=== PATIENT | male | born 1985 | race American Indian/Alaskan Native ===

== ENCOUNTER 2018-11-25 15:08 | Emergency (ER) | payer SELFPAY ==
[2018-11-25] MEDS ORDERED: ASPIRIN PO ONE (15:47)
--- NOTE | 2018-11-25 15:49 | Emergency Department Report ---
Chief Complaint: Chest Pain Stated Complaint: CHEST PAIN Time Seen by Provider: 11/25/18 15:46 - HPI History of Present Illness: This is a 33 y.o. M. that presents to the ER with substernal chest pain since last night while at work. Patient reports pain increased this morning. No PMH - Exam Vital Signs: Vital Signs 11/25/18 15:45 Temperature 98.0 F Pulse Rate 56 L Respiratory 18 Rate Blood Pressure 130/72 O2 Sat by Pulse 98 Oximetry MSE screening note: Focused history and physical exam performed. Due to findings the following was ordered: This initial assessment/diagnostic orders/clinical plan/treatment(s) is/are subject to change based on patient's health status, clinical progression and re- assessment by fellow clinical providers in the ED. Further treatment and workup at subsequent clinical providers discretion. Patient/guardians urged not to elope from the ED as their condition may be serious if not clinically assessed and managed. Initial orders include: labs, ekg, and chest xr. ED Disposition for MSE Condition: Stable
--- NOTE | 2018-11-25 17:10 | XRay Report ---
PROCEDURE: XR CHEST 1V AP TECHNIQUE: Chest radiograph single view. HISTORY: Chest Pain COMPARISONS: None . FINDINGS: Heart: Normal. Mediastinum/Vessels: Normal. Lungs/Pleural space: No infiltrate, effusion, or pneumothorax. Bony thorax: No acute osseous abnormality. Life support devices: None. IMPRESSION: No radiographic evidence of acute cardiopulmonary abnormality. This document is electronically signed by Debi Stephens MD., November 25 2018 05:08:16 PM ET
[2018-11-25 20:03] LABS: Basophils # (Auto) 0.1 K/mm3 (0.0-0.1); Basophils % (Auto) 1.1 % (0.0-1.8); Eosinophils # (Auto) 0.4 K/mm3 (0.0-0.4); Eosinophils % (Auto) 5.3 % (0.0-4.3); Hematocrit 44.2 % (35.5-45.6); Hemoglobin 15.1 gm/dl (11.8-15.2); Lymphocytes # (Auto) 3.5 K/mm3 (1.2-5.4); Mean Corpuscular HGB Conc 34 % (32-34); Mean Corpuscular Volume 91 fl (84-94); Monocytes # (Auto) 0.4 K/mm3 (0.0-0.8); Monocytes % (Auto) 5.7 % (0.0-7.3); Platelet Count 265 K/mm3 (140-440); Red Blood Count 4.84 M/mm3 (3.65-5.03); Red Cell Distribution Width 13.3 % (13.2-15.2)
[2018-11-25 20:14] VITALS: BP 115/76
[2018-11-25 20:26] LABS: BUN/Creatinine Ratio 14; Blood Urea Nitrogen 13 mg/dL (9-20); Calcium 9.6 mg/dL (8.4-10.2); Hemolysis Index 20
[2018-11-25 20:29] LABS: Alanine Aminotransferase 31 units/L (7-56); Albumin 4.9 g/dL (3.9-5)
[2018-11-25 20:41] LABS: Bilirubin,Direct < 0.2 mg/dL (0-0.2)
--- NOTE | 2018-11-25 20:48 | Emergency Department Report ---
ED Chest Pain HPI - General Chief Complaint: Chest Pain Stated Complaint: CHEST PAIN Time Seen by Provider: 11/25/18 15:46 Source: patient Mode of arrival: Ambulatory Limitations: No Limitations - History of Present Illness Initial Comments: Patient is a 33-year-old -[place] male with a history of tobacco smoking and presents to the ED with complaint of acute onset persistent severe chest pain after heavy lifting at work 24 hours ago. Patient states that the pain has been constant and is worse with any movement, palpation or inhalation. Patient denies fall, traumatic injury, diaphoresis, nausea, vomiting, numbness and tingling of upper extremities, neck pain, dizziness, headache, palpitations, fever, chills, cough or sore throat and abdominal pain and back pain. MD Complaint: chest pain, other (heavy lifting 24 hours, now has chest pain) -: Sudden, hour(s) (24) Onset: during exertion, other (after heavy lifting at work) Pain Location: substernal (diffusely) Pain Radiation: none Severity: severe Severity scale (0 -10): 8 Quality: tightness, aching, sharp Consistency: constant Improves With: nothing Worsens With: exertion, inspiration, palpation, movement Context: other (heavy lifting at work 24 hours ago) re: denies: nausea, vomting, diaphoresis, dyspnea, sense of impending doom Other Symptoms: denies: cough, fever, rash, acid taste in mouth, leg swelling, palpitations, burping, other Treatments Prior to Arrival: none Aspirin use within the Past 7 Days: (0) No - Related Data Previous Rx's Medication Instructions Recorded Last Taken Type Cyclobenzaprine [Flexeril] 10 mg PO Q8H PRN #15 tablet 11/25/18 Unknown Rx Naproxen [Naprosyn] 500 mg PO Q12H PRN #20 tablet 11/25/18 Unknown Rx Allergies Allergy/AdvReac Type Severity Reaction Status Date / Time No Known Allergies Allergy Unverified 11/25/18 15:15 Heart Score - HEART Score History: Slightly suspicious EKG: Non-specific Age: < 45 Risk factors: 1-2 risk factors Troponin: < normal limit HEART Score: 2 - Critical Actions Critical Actions: 0-3 pts:0.9-1.7%risk of adverse cardiac event.Candidate for discharge ED Review of Systems ROS: Stated complaint: CHEST PAIN Other details as noted in HPI Comment: All other systems reviewed and negative Constitutional: no symptoms reported, see HPI. denies: diaphoresis, fever, malaise, weakness Eyes: as per HPI. denies: eye pain, eye discharge, vision change ENT: as per HPI. denies: ear pain, throat pain, dental pain, hearing loss, epistaxis Respiratory: no symptoms reported, see HPI. denies: cough, orthopnea, shortness of breath, SOB with exertion Cardiovascular: as per HPI, chest pain (anterior substernal diffusely). denies: palpitations, dyspnea on exertion, orthopnea, edema, syncope, paroxysmal n octurnal dyspnea, other Endocrine: no symptoms reported, see HPI. denies: excessive sweating, flushing, intolerance to cold, intolerance to heat, increased hunger, increased thirst, increased urine, unexplained weight gain, unexplained weight loss Gastrointestinal: as per HPI. denies: abdominal pain, nausea, vomiting, diarrhea, constipation, hematemesis Genitourinary: as per HPI. denies: urgency, dysuria, frequency, hematuria, discharge, testicular pain, testicular mass Musculoskeletal: as per HPI. denies: back pain, joint swelling, arthralgia, myalgia Skin: as per HPI. denies: rash, lesions, change in color, change in hair/nails Neurological: as per HPI. denies: headache, weakness, numbness, paresthesias, confusion, abnormal gait, vertigo Psychiatric: as per HPI. denies: anxiety, depression, auditory hallucinations, visual hallucinations Hematological/Lymphatic: as per HPI ED Past Medical Hx - Past Medical History Previous Medical History?: No - Surgical History Past Surgical History?: No - Social History Smoking Status: Current Some Day Smoker Substance Use Type: None - Medications Home Medications: Home Medications Medication Instructions Recorded Confirmed Last Taken Type Cyclobenzaprine [Flexeril] 10 mg PO Q8H PRN #15 tablet 11/25/18 Unknown Rx Naproxen [Naprosyn] 500 mg PO Q12H PRN #20 tablet 11/25/18 Unknown Rx ED Physical Exam - General Limitations: No Limitations General appearance: alert, in no apparent distress - Head Head exam: Present: atraumatic, normocephalic, normal inspection - Eye Eye exam: Present: normal appearance, PERRL, EOMI. Absent: scleral icterus, conjunctival injection, periorbital swelling, periorbital tenderness Pupils: Present: normal accommodation. Absent: unequal - ENT ENT exam: Present: normal exam, normal orophraynx, mucous membranes moist, TM's normal bilaterally, normal external ear exam - Neck Neck exam: Present: normal inspection, full ROM. Absent: tenderness, meningismus, lymphadenopathy - Respiratory Respiratory exam: Present: normal lung sounds bilaterally, chest wall tenderness (anterior). Absent: respiratory distress, wheezes, rales, accessory muscle use, decreased breath sounds, prolonged expiratory - Cardiovascular Cardiovascular Exam: Present: normal rhythm, bradycardia, irregular rhythm, normal heart sounds. Absent: tachycardia, systolic murmur, diastolic murmur, gallop - GI/Abdominal GI/Abdominal exam: Present: soft, normal bowel sounds. Absent: distended, tenderness, guarding, rebound, hyperactive bowel sounds, hypoactive bowel sounds, organomegaly - Rectal Rectal exam: Present: deferred - Extremities Exam Extremities exam: Present: normal inspection, full ROM, normal capillary refill - Back Exam Back exam: Present: normal inspection, full ROM. Absent: tenderness, CVA tenderness (R), CVA tenderness (L), muscle spasm, paraspinal tenderness - Neurological Exam Neurological exam: Present: alert, oriented X3, CN II-XII intact, normal gait, reflexes normal - Psychiatric Psychiatric exam: Present: normal affect, anxious. Absent: normal mood, depressed, agitated, flat affect, manic - Skin Skin exam: Present: warm, dry, intact, normal color ED Course Vital Signs 11/25/18 11/25/18 15:45 20:05 Temperature 98.0 F 97.6 F Pulse Rate 56 L 63 Respiratory 18 15 Rate Blood Pressure 130/72 115/76 O2 Sat by Pulse 98 98 Oximetry - Reevaluation(s) Reevaluation #1: 11/25/18 20:59 Patient is alert and oriented 3 and is not in distress with stable vital signs. EKG shows sinus arrhythmia with a heart rate of 72 bpm, and no ST or T wave abnormalities. Chest x-ray shows no acute cardiopulmonary abnormalities. Lab tests results were reviewed and are unremarkable with normal troponin levels. Patient was treated in the ED and aspirin. Because of the patient's history and physical exam findings as well as lab test results and imaging report, the patient's symptoms are likely from musculoskeletal strain or injury following heavy lifting at work 24 hours ago. Although the patient has a heart score of 2, and with negative test results, patient's symptoms are unlikely to be cardiac in origin. Patient was discharged home on anti-inflammatory medications and muscle relaxants and advised to follow-up with his primary care physician in 2 days for reevaluation or return to the ED immediately if symptoms get worse. SHORTY score - Shorty Score Age > 65: (0) No Aspirin use within the Past 7 Days: (0) No 3 or more CAD Risk Factors: (0) No 2 or more Angina events in past 24 hrs: (0) No Known CAD with more than 50% Stenosis: (0) No Elevated Cardiac Markers: (0) No ST Deviation Greater than 0.5mm: (0) No SHORTY Score: 0 ED Medical Decision Making - Lab Data Result diagrams: 11/25/18 19:48 11/25/18 19:48 - EKG Data 11/25/18 20:45 Sinus arrhythmia with a heart rate of [address] elevation or ST depressions. - Radiology Data Radiology results: report reviewed, image reviewed No acute cardiopulmonary abnormality - Medical Decision Making Patient is alert and oriented 3 and is not in distress with stable vital signs. EKG shows sinus arrhythmia with a heart rate of 72 bpm, and no ST or T wave abnormalities. Chest x-ray shows no acute cardiopulmonary abnormalities. Lab tests results were reviewed and are unremarkable with normal troponin levels. Patient was treated in the ED and aspirin. Because of the patient's history and physical exam findings as well as lab test results and imaging report, the patient's symptoms are likely from musculoskeletal strain or injury following heavy lifting at work 24 hours ago. Although the patient has a heart score of 2, and with negative test results, patient's symptoms are unlikely to be cardiac in origin. Patient was discharged home on anti-inflammatory medications and muscle relaxants and advised to follow-up with his primary care physician in 2 days for reevaluation or return to the ED immediately if symptoms get worse. - Differential Diagnosis CAD, Chest pain, costochondritis, chest wall muscle strain Critical care attestation.: If time is entered above; I have spent that time in minutes in the direct care of this critically ill patient, excluding procedure time. ED Disposition Clinical Impression: Nonspecific chest pain, Muscle strain of anterior chest wall, Acute costochondritis Disposition: TO HOME OR SELFCARE Is pt being admited?: No Does the pt Need Aspirin: No Condition: Stable Instructions: Chest Pain (ED), Costochondritis (ED), Muscle Strain (ED) Additional Instructions: Take pain medications and muscle relaxants as needed with food, drink plenty of fluids and follow up with your primary care physician in 3-5 days for reevaluation. Return to the ED immediately if symptoms get worse. Prescriptions: Cyclobenzaprine [Flexeril] 10 mg PO Q8H PRN #15 tablet PRN Reason: Spasms Naproxen [Naprosyn] 500 mg PO Q12H PRN #20 tablet PRN Reason: Pain , Severe (7-10) Referrals: COLEEN GRIFFITH MD [Primary Care Provider] - 3-5 Days Forms: Work/School Release Form(ED) Time of Disposition: 20:48 Print Language: NAURUAN
== END 2018-11-25 20:58 | disposition home or self-care (01) ==
LOC: ED 15:08
DX: S29.011A Strain of muscle and tendon of front wall of thorax, initial encounter (principal); M94.0 Chondrocostal junction syndrome [Tietze]; F17.200 Nicotine dependence, unspecified, uncomplicated; X50.0XXA Overexertion from strenuous movement or load, initial encounter; Y93.89 Activity, other specified; Y92.89 Other specified places as the place of occurrence of the external cause; Y99.8 Other external cause status
CPT/HCPCS: 36415; 71045; 80048; 80076; 84484; 85025; 93005; 93010

== ENCOUNTER 2020-12-22 21:03 | Emergency (ER) | payer SELFPAY ==
[2020-12-22 21:47] VITALS: BP 182/113
== END 2020-12-22 21:51 | disposition left against medical advice (07) ==
LOC: ED 21:03
DX: Z00.8 Encounter for other general examination (principal); Z53.21 Procedure and treatment not carried out due to patient leaving prior to being seen by health care provider

== ENCOUNTER 2020-12-23 15:06 | Emergency (ER) | payer SELFPAY ==
[2020-12-23 17:13] VITALS: BP 199/101
--- NOTE | 2020-12-23 17:35 | Emergency Department Report ---
ED General Adult HPI - General Chief complaint: Wound/Laceration Stated complaint: INGROWN TOE NAIL,TOOTHPAIN Time Seen by Provider: 12/23/20 17:06 Source: patient Mode of arrival: Ambulatory Limitations: No Limitations - History of Present Illness Initial comments: Patient is a 35-year-old male who presents emergency room with complaints of an ingrown toenail to his left big toe. He states that he has been there for approximately 3 months. He denies any swelling, drainage, fever, vomiting, chills, difficulty walking, numbness, weakness. Patient states he is also been out of his blood pressure medication for a few months. He states he supposed to be taking amlodipine. He denies any headache, chest pain, shortness of breath, vision changes, numbness, weakness, speech disturbance, gait disturbance. No other past medical history. No allergies to medications. He states he has been eating a lot of salt lately. Severity scale (0 -10): 10 - Related Data Previous Rx's Medication Instructions Recorded Last Taken Type Cyclobenzaprine [Flexeril] 10 mg PO Q8H PRN #15 tablet 11/25/18 Unknown Rx Naproxen [Naprosyn] 500 mg PO Q12H PRN #20 tablet 11/25/18 Unknown Rx amLODIPine 10 mg PO DAILY #30 tab 12/23/20 Unknown Rx Allergies Allergy/AdvReac Type Severity Reaction Status Date / Time No Known Allergies Allergy Verified 12/23/20 15:55 ED Review of Systems ROS: Stated complaint: INGROWN TOE NAIL,TOOTHPAIN Other details as noted in HPI Comment: All other systems reviewed and negative ED Past Medical Hx - Past Medical History Hx Hypertension: Yes - Surgical History Past Surgical History?: No - Social History Smoking Status: Current Some Day Smoker Substance Use Type: None - Medications Home Medications: Home Medications Medication Instructions Recorded Confirmed Last Taken Type Cyclobenzaprine [Flexeril] 10 mg PO Q8H PRN #15 tablet 11/25/18 Unknown Rx Naproxen [Naprosyn] 500 mg PO Q12H PRN #20 tablet 11/25/18 Unknown Rx amLODIPine 10 mg PO DAILY #30 tab 12/23/20 Unknown Rx ED Physical Exam - General Limitations: No Limitations General appearance: alert, in no apparent distress - Head Head exam: Present: atraumatic, normocephalic - Eye Eye exam: Present: normal appearance - ENT ENT exam: Present: mucous membranes moist - Respiratory Respiratory exam: Absent: respiratory distress, accessory muscle use - Neurological Exam Neurological exam: Present: alert, oriented X3, CN II-XII intact, normal gait. Absent: motor sensory deficit - Psychiatric Psychiatric exam: Present: normal affect, normal mood - Skin Skin exam: Present: warm, dry, other (appears to have an ingrown toenail present to the left big toe nail, no edema, no erythema, no induration or fluctuance, no necrosis, no ulceration, FROM, neurovascularly intact) ED Course Vital Signs 12/23/20 12/23/20 15:56 17:12 Temperature 98.1 F Pulse Rate 122 H 103 H Respiratory 20 18 Rate Blood Pressure 185/105 199/101 [Right] O2 Sat by Pulse 97 99 Oximetry ED Medical Decision Making - Lab Data Vital Signs 12/23/20 12/23/20 15:56 17:12 Temperature 98.1 F Pulse Rate 122 H 103 H Respiratory 20 18 Rate Blood Pressure 185/105 199/101 [Right] O2 Sat by Pulse 97 99 Oximetry - Medical Decision Making Patient is a 35-year-old male who presents emergency room with complaints of an ingrown toenail to his left big toe. He states that he has been there for approximately 3 months. He denies any swelling, drainage, fever, vomiting, chills, difficulty walking, numbness, weakness. Patient states he is also been out of his blood pressure medication for a few months. He states he supposed to be taking amlodipine. He denies any headache, chest pain, shortness of breath, vision changes, numbness, weakness, speech disturbance, gait disturbance. No other past medical history. No allergies to medications. He states he has been eating a lot of salt lately. Initial vitals with tachycardia which improved upon repeat. Vitals with elevated blood pressure, patient has been noncompliant with his medication for a few months. Patient is not having any symptoms related to his elevated blood pressure, the up-to-date medical literature does not recommend emergently lowering asymptomatic elevated blood pressure. On exam:appears to have an ingrown toenail present to the left big toe nail, no edema, no erythema, no induration or fluctuance, no necrosis, no ulceration, FROM, neurovascularly intact. There is no signs of infection of the ingrown toenail. Patient given prescription for his home medication. Discussed lifestyle modifications. Patient will be referred to podiatry for ingrown toenail. Advised patient please take medication as prescribed. Increase your water intake. Eat a low-sodium diet. Incorporate 30 to 60 minutes of daily exercise. Keep a blood pressure log. Follow-up with a primary care doctor. Follow-up with a electrotyper regarding her ingrown toenail. Return to emergency room for new or symptoms. Critical care attestation.: If time is entered above; I have spent that time in minutes in the direct care of this critically ill patient, excluding procedure time. ED Disposition Clinical Impression: Ingrown toenail, Elevated blood pressure reading, Non compliance with medical treatment Disposition: DC- TO HOME OR SELFCARE Is pt being admited?: No Does the pt Need Aspirin: No Condition: Stable Instructions: Ingrown Toenail, Managing Your Hypertension, Hypertension, Adult Additional Instructions: please take medication as prescribed. Increase your water intake. Eat a low- sodium diet. Incorporate 30 to 60 minutes of daily exercise. Keep a blood pressure log. Follow-up with a primary care doctor. Follow-up with a electrotyper regarding her ingrown toenail. Return to emergency room for new or symptoms. Prescriptions: amLODIPine 10 mg PO DAILY #30 tab Referrals: NACHO WHEAT DPM [Staff Physician] - 2-3 Days MEG FERRIS MD [Staff Physician] - 2-3 Days [facility] [Provider Group] - 2-3 Days Forms: Work/School Release Form(ED) Time of Disposition: 17:29 Print Language: GUYANESE
== END 2020-12-23 17:48 | disposition home or self-care (01) ==
LOC: ED 15:06
DX: L60.0 Ingrowing nail (principal); R03.0 Elevated blood-pressure reading, without diagnosis of hypertension; I10 Essential (primary) hypertension; F17.200 Nicotine dependence, unspecified, uncomplicated; Z79.899 Other long term (current) drug therapy; Z91.19 Patient's noncompliance with other medical treatment and regimen
CPT/HCPCS: 99282